=== PATIENT | female | born 1940 | race Caucasian/White ===

== ENCOUNTER 2016-08-23 20:41 | Emergency (ER) | payer OTHER ==
--- NOTE | 2016-08-23 22:38 | DIAGNOSTIC IMAGING REPORT ---
PROCEDURE: XR CHEST 1 VIEW INDICATION: CHEST PAIN TECHNIQUE: Portable AP view (2130 hours). COMPARISON: Compared to chest x-ray on 06/01/2013. FINDINGS: Allowing for suboptimal inspiration and overlying wires and electrodes, lungs are clear. Heart and mediastinum are normal. Thorax is normal. IMPRESSION: 1. Allowing for suboptimal inspiration, negative chest.
--- NOTE | 2016-08-23 23:35 | ED CLINICAL REPORT ---
Clinical Report - Physicians/Mid Levels [facility] [address] [place] [address] 08/23/2016 20:42 Patient: ROSEANN GRANT Time Seen: 21:05 Aug 23 2016. Arrived- By private vehicle. Historian- patient. CPT: ER phys charges level 4 (#[id number]). HISTORY OF PRESENT ILLNESS Chief Complaint: ABDOMINAL PAIN and VOMITING and NAUSEA. At its maximum, severity described as moderate. When seen in the E.D., severity described as moderate. Modifying factors- worsened by food. Not relieved by anything. It is described as burning and it is described as located in the epigastric area. This started today Vomited up raspberries that she just ate. Pt has not taken po well for 4 days and has not taken her usual meds including prilosec for her reflux. and is still present. The patient has had nausea and vomiting. Similar symptoms previously: Recent medical care: The patient was seen recently at another facility in the office (1 weeks ago). Seen for other problems; earpain and bronchitis. Evaluation/treatment: antibiotic prescribed. REVIEW OF SYSTEMS No constipation, black stools, hematemesis, difficulty with urination or pain with urination. No fever, sore throat, chest pain, difficulty breathing or cough. No chills. PAT right sided. Not as bad as a migraine at this point,. Amoxicillin causing diarrhea so has stopped that medication. Drinks 1.5 cups of caffeine a day. NO ETOH or NSAIDS. All systems otherwise negative, except as recorded above. PAST HISTORY Chest Wall Pain. Gastroesophageal reflux disease. SURGERY HX: Appendectomy. Sinusitis. Chest Pain. Anxiety Reaction. Headache. Hypertension. Immunizations. Gastroesophageal Reflux Disease. Migraine Headache. Asthma. Medications: ALPRAZolam Oral, as needed. Ambien Oral, as needed. ASA Oral 81mg daily. Diovan Oral (Tablet 40 mg) 1/2 tablet, daily. Maxalt Oral 5 mg, as needed. PriLOSEC Oral 20 mg, daily. Sertraline HCl Oral, daily. Allergies: Codeine. Shellfish Allergy.(hives) Sulfa Drugs. SOCIAL HISTORY Never smoker. Occasional alcohol use. No drug use. ADDITIONAL NOTES The nursing notes have been reviewed. PHYSICAL EXAM Vital Signs: 08/23/2016 20:45 BP: 188/95. HR: 78. RR: 18. O2 saturation: 97%. Temp: 97.7 F. Pain level now: 6/10. Appearance: Alert. Anxious. Patient in mild distress. Eyes: Eyes normal inspection. ENT: Pharynx normal. Neck: Normal inspection. Neck supple. CVS: Normal heart rate and rhythm. Heart sounds normal. Pulses normal. Respiratory: No respiratory distress. Breath sounds normal. Chest nontender. Abdomen: Soft. Moderate tenderness in the epigastric area with guarding present. Bowel sounds normal. No mass. Back: Normal inspection. No CVA tenderness. Skin: Skin warm. Normal skin color. No rash. Extremities: Extremities exhibit normal ROM. No calf tenderness. No lower extremity edema. Neuro: Oriented X 3. No motor deficit. No sensory deficit. Reflexes normal. LABS, X-RAYS, AND EKG EKG: Normal EKG. Chest X-ray: No acute disease. Views: AP (portable). Technique: good, poor inspiration. The X-rays were independently viewed by me and interpreted by the radiologist. Laboratory Tests: CBC w Diff: (DANELLE: 08/23/2016 20:55) ( MsgRcvd 08/23/2016 22:01) Final results Test Result Flag Units (Reference) WHITE BLOOD COUNT 12.6 H K/uL (4.5-11.5) RED BLOOD COUNT 4.45 M/uL (4.00-5.20) HEMOGLOBIN 13.9 gm/dL (12.0-16.0) HEMATOCRIT 41.1 % (36.0-46.0) MEAN CELL VOLUME 92 fL (80-100) MEAN CORPUSCULAR HGB 31 pg (26-34) MEAN CORPUSCULAR HGB CONC 34 g/dL (31-37) RED CELL DISTRIBUTION WIDTH 13.6 % (11.6-14.8) PLATELET COUNT 318 K/uL (150-400) NEUTROPHIL % 48.5 L % (50-75) LYMPH % 39.6 % (25-40) MONO % 6.6 % (3-14) EOSINOPHIL % 4.7 H % (0-4) BASOPHIL % 0.6 % (0-2) [id number]: (DANELLE: 08/23/2016 20:55) ( [facility] 08/23/2016 22:03) Final results Test Result Flag Units (Reference) D-DIMER QUANTITATIVE 0.33 ug/mLFEU (0.27-0.52) The primary value of this quantitative assay relates toits negative predictive value (i.e. exclusion) of pulmonaryembolism/deep vein thrombosis/DIC.Elevated levels of d-dimer may also occur with:, age, cancer, inflammation, liver disease,post-op, infection, hematoma, coronary disease, peripheralarteriopathy, bleeding disorders and thrombolytic treatment.Results should be correlated with other clinical andradiological data.Testing Methodology: Latex Immunoassay BNP: (DANELLE: 08/23/2016 20:55) ( [facility] 08/23/2016 22:18) Final results Test Result Flag Units (Reference) B-TYPE NATRIURETIC PEPTIDE 8.8 pg/ml (5-100) Lipase: (DANELLE: 08/23/2016 20:55) ( [facility] 08/23/2016 22:29) Final results Test Result Flag Units (Reference) LIPASE 330 U/L (73-393) AMYLASE 58 U/L (25-115) CHEM 13 PANEL: (DANELLE: 08/23/2016 20:55) ( [facility] 08/23/2016 22:16) Final results Test Result Flag Units (Reference) GLUCOSE 93 mg/dL (70-110) BUN 14 mg/dL (7-18) CREATININE 0.9 mg/dL (0.6-1.3) Estimated GFR >60 mL/min Estimated GFR- >60 mL/min Note: Persistent reduction over 3 months in eGFR<60 mL/min/1.73 m2 defines CKD. Patients with eGFR values>=60 mL/min/1.73 m2 may also have CKD if evidence ofpersistent proteinuria. Additional information may be foundat www.kidney.org. SODIUM 129 L mmol/L (136-145) POTASSIUM 3.5 mmol/L (3.5-5.1) CHLORIDE 91 L mmol/L (98-107) CARBON DIOXIDE 30 mmol/L (21-32) CALCIUM 9.3 mg/dL (8.5-10.1) TOTAL PROTEIN 7.7 g/dL (6.4-8.2) ALBUMIN 4.0 g/dL (3.3-5.0) BILIRUBIN, TOTAL 0.5 mg/dL (0.0-1.0) ALKALINE PHOSPHATASE 84 U/L (46-116) AST (SGOT) 19 U/L (15-37) ALT (SGPT) 24 U/L (12-78) MAGNESIUM 2.0 mg/dL (1.8-2.4) CPK 56 U/L (24-260) TROPONIN I <0.05 ng/mL (0.00-1.5) TROPONIN REFERENCE RANGE:<0.1 NEGATIVE0.1-1.5 INDETERMINANT>1.5 POSITIVE . PROGRESS AND PROCEDURES Course of Care: IV NS Zofran 4 mg Iv White GI cocktail: Pain resolved. Protonix 80 mg IV Carafate 20 ml po Demerol 6.25 mg IV Patient is stable. Symptoms much better. Patient/family counseled. Old medical records ordered. Disposition: Discharged. Condition: stable and improved. CLINICAL IMPRESSION Gastroesophageal reflux disease with esophagitis. Esophageal spasm. Tension headache. INSTRUCTIONS Warnings: Further evaluation is necessary. SEDATIVE MEDICATION: You were given sedative medication during your visit. Do not drive or operate dangerous machinery. GENERAL WARNINGS: Return or contact your physician immediately if your condition worsens or changes unexpectedly, if not improving as expected, or if other problems arise. Prescription Medications: Zofran (orally disintegrating tablets) 4 mg: take 1 orally every 4 hours as needed for nausea. Dispense ten (10). No refill. Carafate 1 gm tablets: take 1 orally four times daily (30 minutes before meals and at bedtime) for 10 days. Dispense forty (40). No refills. Prilosec 40 mg capsules: take 1 capsule orally every day for 10 days. Dispense ten (10). No refill. Follow-up: Follow up with your doctor in one week. Call for an appointment. Understanding of the discharge instructions verbalized by patient. (Electronically signed by Saturnino Lambert MD 09/04/2016 2:57)
--- NOTE | 2016-08-23 23:35 | ED ORDER SUMMARY ---
..... Patient: ROSEANN GRANT OrderSheet [facility] VisitID: [id number] [place] [address] 75y, F Registration Date/Time: 08/23/2016 ORDER SHEET Weight: 76.2 kg (stated) Allergies: Codeine, Shellfish Allergy, Sulfa Drugs GENERAL ORDERS: Chest 1V Urgent (21:08/23/2016 aJmarcus LARSEN) (Ack 21:28 Luther) (21:39 MCampbell) Spectacle Truer (Continuous) (21:08/23/2016 Jamarcus LARSEN) (21:25 ASchmuck) Cardiac Panel Stat (21:08/23/2016 Jamarcus LARSEN) (Ack 21:28 Luther) (21:31 Renettanandez R.N.) BNP Urgent (21:08/23/2016 Jamarcus LARSEN) (Ack 21:28 Luther) (21:31 Renettanandez R.N.) D-Dimer Urgent (21:08/23/2016 Jamarcus LARSEN) (Ack 21:28 Luther) (21:31 Renettanandez R.N.) Amylase Urgent (21:08/23/2016 Jamarcus LARSEN) (Ack 21:28 Luther) (21:31 Renettanandez R.N.) Lipase Urgent (21:08/23/2016 Jamarcus LARSEN) (Ack 21:28 Luther) (21:31 Nida R.N.) Pulse oximeter (21:08/23/2016 Jamarcus LARSEN) (21:25 ASchmuck) EKG - ER Stat (21:08/23/2016 Jamarcus LARSEN) (21:25 ASchmuck) MEDICATION ORDERS: GI Cocktail WHITE PO 50 mL (NOW) (21:24 08/23/2016 Jamarcus LARSEN) (Ack 21:32 Nida R.N.) (21:52 Renettanandez R.N.) Carafate PO 20 ml (NOW) (21:08/23/2016 Jamarcus LARSEN) (Ack 21:32 Nida R.N.) (21:58 Nida R.N.) IV FLUIDS: IV NS : initial bolus 500 mL (1000 mL/hr), then 150 mL/hr for 4h (NOW); Routine (21:23 08/23/2016 Jamarcus LARSEN) (Ack 21:32 Nida R.N.) (21:50 Nida R.N.) Zofran IV 4 mg (NOW) (21:24 08/23/2016 Jamarcus LARSEN) (Ack 21:32 Nida R.N.) (21:51 Nida R.N.) Protonix IVP 80mg 80 mg (Mix in NS 20ml over 4min) (21:24 08/23/2016 Jamarcus LARSEN) (Ack 21:32 Nida R.N.) (21:52 Nida David.N.) Demerol IV 6.25 mg IV (NOW) (23:30 08/23/2016 Jamarcus LARSEN) (0:01 Nida R.N.) ORDER SHEET NOTES: [Electronically signed by Destin La R.N. (00:01 08/24/2016)] [Electronically signed by Saturnino Lambert MD (02:57 09/04/2016)] [Electronically locked/signed by Destin La R.N. (00:01 08/24/2016)]
--- NOTE | 2016-08-23 23:35 | ED NURSING NOTES ---
Clinical Report - Nurses [facility] [place] [address] 08/23/2016 20:42 Patient: ROSEANN GRANT TRIAGE Triage time 20:45. Acuity: LEVEL 3. Chief Complaint: ABDOMINAL PAIN, NAUSEA and VOMITING. --20:53 Destin La R.N. 20:45 08/23/16. BP: 188/95. HR: 78. RR: 18. O2 saturation: 97%. Temp: 97.7 F (oral). Pain level now: 07/31. --20:53 Destin La R.N. Weight: 76.2 kg stated. Height/Length: 63 inches Per Patient. BMI: 29.8. --20:51 Destin La R.N. Medications ALPRAZolam Oral, as needed. Ambien Oral, as needed. ASA Oral 81mg daily. Diovan Oral (Tablet 40 mg) 1/2 tablet, daily. Maxalt Oral 5 mg, as needed. PriLOSEC Oral 20 mg, daily. Sertraline HCl Oral, daily. --20:49 Destin La R.N. Medication/allergy information source: the patient. --20:53 Destin La R.N. Allergies Codeine. Shellfish Allergy.(hives) Sulfa Drugs. --20:49 Destin La R.N. History Arrived by private vehicle. Historian: patient. Accompanied by family. ( Nausea and vomiting tonight, feels like her acid reflux. Burning pain on the epigastric area. Also has diarrhea and currently on antibiotics for bronchitis.). This started just prior to arrival. She has had nausea, vomiting and abdominal pain. The pain is described as located in the epigastrium and associated with nausea and vomiting. Last oral intake by patient was dinner. Treatment SENIOR WEB SERVICES DEVELOPER: None. PAST MEDICAL HX: Gastroesophageal reflux disease. SURGERY HX: Appendectomy. SOCIAL HX: No infectious disease exposure. --20:53 Destin La R.N. PROBLEMS: Chest Wall Pain. Sinusitis. Chest Pain. Anxiety Reaction. Headache. Hypertension. Immunizations. Gastroesophageal Reflux Disease. Migraine Headache. Asthma. --20:50 Destin La R.N. Interventions ID band on patient. To room. --20:53 Destin La R.N. PHYSICAL ASSESSMENT To room via wheelchair. GENERAL / NEURO / PSYCH: Alert. Oriented X 4. Appears in no acute distress. HEENT: Mucous membranes are pink. RESPIRATORY: Respirations not labored. Breath sounds within normal limits. CVS: Capillary refill less than 2 seconds. GI / : The patient has had nausea and loose stools. Emesis noted. Has vomited several times. Abdomen soft. SKIN: Skin is warm and dry. --20:55 Destin La R.N. NURSING PROGRESS NOTES 20:52 08/23/2016 Site #1 started via IV in the left forearm with an 20g angiocath; one attempt. Blood drawn: rainbow set. Saline lock flushed with 10 mL saline. --20:57 Destin La R.N. busgirl, pulse oximeter, end tidal CO2 monitor and NIBP monitor placed on patient; cardiac nurse specialist- Lead II; monitor alarms on. Patient ID band checked for patient name and birthdate: patient confirmed. Blood samples drawn from the left forearm IV site (prior to IV fluid start) by nurse ; labeled in presence of the patient and sent to lab: rainbow set. Patient gowned. Head of bed elevated. Patient identifiers checked. Call light placed in reach. Bed placed in lowest position. Brakes of bed on. Patient ready for evaluation- ED physician notified. --20:57 Destin La R.N. Cardiac rhythm: normal sinus rhythm. --20:57 Destin La R.N. EKG time: (20:53 Aug 23 2016). EKG was ordered, performed by a nurse and shown to the ED physician. --21:11 Ksenia Parr 21:45 08/23/2016 Started bag #1 1000 mL IV Fluids IV NS (Saline); bolus of 500 mL over 30 minute(s) via site #1 via IV pump. Allergies verified and confirmed 5 rights. IV patency established. IV site checked: no pain, redness, or swelling. IV flushed thoroughly pre- and post-medication administration. --21:50 Destin La R.N. 21:45 08/23/2016 Zofran (Ondansetron HCl) IVP 4 mg given over 2 minute(s) via site #1. Allergies verified and confirmed 5 rights. IV patency established. IV site checked: no pain, redness, or swelling. IV flushed thoroughly pre- and post-medication administration. IVP given by RN. --21:51 Destin La R.N. 21:46 08/23/2016 GI COCKTAIL WHITE (Simethicone) PO Oral Suspension 50 mL given. Allergies verified and confirmed 5 rights. --21:52 Destin La R.N. 21:52 08/23/2016 PROTONIX (Pantoprazole Sodium) IVP 80 mg given over 5 minute(s) via site #1. Allergies verified and confirmed 5 rights. IV patency established. IV site checked: no pain, redness, or swelling. IV flushed thoroughly pre- and post-medication administration. IVP given by RN. --21:52 Destin La R.N. 21:00 08/23/16. BP: 157/83. HR: 70. RR: 16. O2 saturation: 99%. --21:56 Destin La R.N. 21:00. Cardiac rhythm: normal sinus rhythm. GI / : Abdomen soft. SKIN: Skin is warm and dry. Skin color within normal limits. --21:56 Destin La R.N. Cardiac rhythm: normal sinus rhythm. Reassessment after medication administered. Overall patient status- she states feels better. --21:57 Destin La R.N. 21:56 08/23/16. BP: 157/79. HR: 65. RR: 16. O2 saturation: 99%. Pain level now: 05/31. --21:57 Destin La R.N. 21:58 08/23/2016 Carafate (Sucralfate) PO Oral Suspension 2 gm given. Allergies verified and confirmed 5 rights. --21:58 Destin La R.N. 22:27 08/23/2016 Started bag #1 500 mL IV Fluids IV NS (Saline); at 150 mL/hr over 4 hour(s) via site #1 via IV pump. Allergies verified and confirmed 5 rights. IV patency established. IV site checked: no pain, redness, or swelling. IV flushed thoroughly pre- and post-medication administration. --22:28 Destin La R.N. 22:27 08/23/2016 IV Fluids IV NS Discontinued: bag #1 infused. Total amount infused: 500 mL. IV patency established. IV site checked: no pain, redness, or swelling. IV flushed thoroughly. --22:27 Destin La R.N. 23:08/23/16. BP: 148/73. HR: 73. RR: 18. O2 saturation: 100%. Temp: 98.1 F. Pain level now: 04/02. --23:02 Destin La R.N. Cardiac rhythm: normal sinus rhythm. Reassessment after fluids administered and medication administered. She is resting quietly. Overall patient status is improved- she states feels better. GI / : Abdomen soft. SKIN: Skin is warm and dry. Skin color within normal limits. --23:02 Destin La R.N. 23:49 08/23/2016 IV Fluids IV NS Discontinued: bag #1 completed upon discharge. Total amount infused: 300 mL. IV patency established. IV site checked: no pain, redness, or swelling. IV flushed thoroughly. --23:59 Destin La R.N. 23:51 08/23/2016 Demerol (Meperidine HCl) IVP 6.25 mg given over 3 minute(s) via site #1. Allergies verified and confirmed 5 rights. IV patency established. IV site checked: no pain, redness, or swelling. IV flushed thoroughly pre- and post-medication administration. IVP given by RN. --00:01 Destin La R.N. 00:01 08/24/2016 Site #1 removed. Pressure dressing applied. --00:01 Destin La R.N. DISPOSITION / DISCHARGE Cardiac rhythm: normal sinus rhythm. Condition at departure: improved. No learning barriers present. Discharge instructions provided and reviewed with the patient and spouse. Reviewed medication(s) side effects, precautions, dosing and course information. Prescription(s) given to the patient. Reviewed referral to a primary care physician for followup. Patient verbalized understanding. Written instructions provided in Micronesian. The patient was discharged home and accompanied by spouse. She left the Emergency Department ambulatory and via ambulance. Spouse driving. --23:59 Destin La R.N. 23:58 08/23/16. BP: 140/69. HR: 68. RR: 16. O2 saturation: 100%. Temp: 98.1 F. Pain level now: 010. --23:59 Destin La R.N. Departure time: 00:01. --00:01 Destin La R.N. Locked/Released at 08/24/2016 0:01 by Destin La R.N.
--- NOTE | 2016-08-23 23:35 | ED ORDER SUMMARY ---
..... Patient: ROSEANN GRANT OrderSheet VisitID: [id number] [place] [address] 75y, F Registration Date/Time: 08/23/2016 ORDER SHEET Weight: 76.2 kg (stated) Allergies: Codeine, Shellfish Allergy, Sulfa Drugs GENERAL ORDERS: Chest 1V Urgent (21:08/23/2016 Jamarcus LARSEN) (Ack 21:28 Luther) (21:39 MCampbell) Real Estate Broker (Continuous) (21:08/23/2016 Jamarcus LARSEN) (21:25 ASchmuck) Cardiac Panel Stat (21:08/23/2016 Jamarcus LARSEN) (Ack 21:28 Luther) (21:31 Renettanandez R.N.) BNP Urgent (21:08/23/2016 Jamarcus LARSEN) (Ack 21:28 Luther) (21:31 Renettanandez R.N.) D-Dimer Urgent (21:08/23/2016 Jamarcus LARSEN) (Ack 21:28 Luther) (21:31 Renettanandez R.N.) Amylase Urgent (21:08/23/2016 Jamarcus LARSEN) (Ack 21:28 Luther) (21:31 Renettanandez R.N.) Lipase Urgent (21:08/23/2016 Jamarcus LARSEN) (Ack 21:28 Luther) (21:31 Nida R.N.) Pulse oximeter (21:08/23/2016 Jamarcus LARSEN) (21:25 ASchmuck) EKG - ER Stat (21:08/23/2016 Jamarcus LARSEN) (21:25 ASchmuck) MEDICATION ORDERS: GI Cocktail WHITE PO 50 mL (NOW) (21:24 08/23/2016 Jamarcus LARSEN) (Ack 21:32 Nida R.N.) (21:52 Renettanandez R.N.) Carafate PO 20 ml (NOW) (21:08/23/2016 Jamarcus LARSEN) (Ack 21:32 Nida R.N.) (21:58 Nida R.N.) IV FLUIDS: IV NS : initial bolus 500 mL (1000 mL/hr), then 150 mL/hr for 4h (NOW); Routine (21:23 08/23/2016 Jamarcus LARSEN) (Ack 21:32 Nida R.N.) (21:50 Nida R.N.) Zofran IV 4 mg (NOW) (21:24 08/23/2016 Jamarcus LARSEN) (Ack 21:32 Nida R.N.) (21:51 Nida R.N.) Protonix IVP 80mg 80 mg (Mix in NS 20ml over 4min) (21:24 08/23/2016 Jamarcus LARSEN) (Ack 21:32 Nida R.N.) (21:52 iNda David.N.) Demerol IV 6.25 mg IV (NOW) (23:30 08/23/2016 Jamarcus LARSEN) (0:01 Nida R.N.) ORDER SHEET NOTES: [Electronically signed by Destin La R.N. (00:01 08/24/2016)] [Electronically signed by Saturnino Lambert MD (02:57 09/04/2016)] [Electronically locked/signed by Destin La R.N. (00:01 08/24/2016)]
--- NOTE | 2016-08-23 23:35 | ED NURSING NOTES ---
Clinical Report - Nurses [facility] [place] [address] 08/23/2016 20:42 Patient: ROSEANN GRANT TRIAGE Triage time 20:45. Acuity: LEVEL 3. Chief Complaint: ABDOMINAL PAIN, NAUSEA and VOMITING. --20:53 Destin La R.N. 20:45 08/23/16. BP: 188/95. HR: 78. RR: 18. O2 saturation: 97%. Temp: 97.7 F (oral). Pain level now: 07/31. --20:53 Destin La R.N. Weight: 76.2 kg stated. Height/Length: 63 inches Per Patient. BMI: 29.8. --20:51 Destin La R.N. Medications ALPRAZolam Oral, as needed. Ambien Oral, as needed. ASA Oral 81mg daily. Diovan Oral (Tablet 40 mg) 1/2 tablet, daily. Maxalt Oral 5 mg, as needed. PriLOSEC Oral 20 mg, daily. Sertraline HCl Oral, daily. --20:49 Destin La R.N. Medication/allergy information source: the patient. --20:53 Destin La R.N. Allergies Codeine. Shellfish Allergy.(hives) Sulfa Drugs. --20:49 Destin La R.N. History Arrived by private vehicle. Historian: patient. Accompanied by family. ( Nausea and vomiting tonight, feels like her acid reflux. Burning pain on the epigastric area. Also has diarrhea and currently on antibiotics for bronchitis.). This started just prior to arrival. She has had nausea, vomiting and abdominal pain. The pain is described as located in the epigastrium and associated with nausea and vomiting. Last oral intake by patient was dinner. Treatment DIRECTOR OF REHABILITATION: None. PAST MEDICAL HX: Gastroesophageal reflux disease. SURGERY HX: Appendectomy. SOCIAL HX: No infectious disease exposure. --20:53 Destin La R.N. PROBLEMS: Chest Wall Pain. Sinusitis. Chest Pain. Anxiety Reaction. Headache. Hypertension. Immunizations. Gastroesophageal Reflux Disease. Migraine Headache. Asthma. --20:50 Destin La R.N. Interventions ID band on patient. To room. --20:53 Destin La R.N. PHYSICAL ASSESSMENT To room via wheelchair. GENERAL / NEURO / PSYCH: Alert. Oriented X 4. Appears in no acute distress. HEENT: Mucous membranes are pink. RESPIRATORY: Respirations not labored. Breath sounds within normal limits. CVS: Capillary refill less than 2 seconds. GI / : The patient has had nausea and loose stools. Emesis noted. Has vomited several times. Abdomen soft. SKIN: Skin is warm and dry. --20:55 Destin La R.N. NURSING PROGRESS NOTES 20:52 08/23/2016 Site #1 started via IV in the left forearm with an 20g angiocath; one attempt. Blood drawn: rainbow set. Saline lock flushed with 10 mL saline. --20:57 Destin La R.N. environmental monitoring specialist, pulse oximeter, end tidal CO2 monitor and NIBP monitor placed on patient; security monitor- Lead II; monitor alarms on. Patient ID band checked for patient name and birthdate: patient confirmed. Blood samples drawn from the left forearm IV site (prior to IV fluid start) by nurse ; labeled in presence of the patient and sent to lab: rainbow set. Patient gowned. Head of bed elevated. Patient identifiers checked. Call light placed in reach. Bed placed in lowest position. Brakes of bed on. Patient ready for evaluation- ED physician notified. --20:57 Destin La R.N. Cardiac rhythm: normal sinus rhythm. --20:57 Destin La R.N. EKG time: (20:53 Aug 23 2016). EKG was ordered, performed by a nurse and shown to the ED physician. --21:11 Ksenia Parr 21:45 08/23/2016 Started bag #1 1000 mL IV Fluids IV NS (Saline); bolus of 500 mL over 30 minute(s) via site #1 via IV pump. Allergies verified and confirmed 5 rights. IV patency established. IV site checked: no pain, redness, or swelling. IV flushed thoroughly pre- and post-medication administration. --21:50 Destin La R.N. 21:45 08/23/2016 Zofran (Ondansetron HCl) IVP 4 mg given over 2 minute(s) via site #1. Allergies verified and confirmed 5 rights. IV patency established. IV site checked: no pain, redness, or swelling. IV flushed thoroughly pre- and post-medication administration. IVP given by RN. --21:51 Destin La R.N. 21:46 08/23/2016 GI COCKTAIL WHITE (Simethicone) PO Oral Suspension 50 mL given. Allergies verified and confirmed 5 rights. --21:52 Destin La R.N. 21:52 08/23/2016 PROTONIX (Pantoprazole Sodium) IVP 80 mg given over 5 minute(s) via site #1. Allergies verified and confirmed 5 rights. IV patency established. IV site checked: no pain, redness, or swelling. IV flushed thoroughly pre- and post-medication administration. IVP given by RN. --21:52 Destin La R.N. 21:00 08/23/16. BP: 157/83. HR: 70. RR: 16. O2 saturation: 99%. --21:56 Destin La R.N. 21:00. Cardiac rhythm: normal sinus rhythm. GI / : Abdomen soft. SKIN: Skin is warm and dry. Skin color within normal limits. --21:56 Destin La R.N. Cardiac rhythm: normal sinus rhythm. Reassessment after medication administered. Overall patient status- she states feels better. --21:57 Destin La R.N. 21:56 08/23/16. BP: 157/79. HR: 65. RR: 16. O2 saturation: 99%. Pain level now: 05/31. --21:57 Destin La R.N. 21:58 08/23/2016 Carafate (Sucralfate) PO Oral Suspension 2 gm given. Allergies verified and confirmed 5 rights. --21:58 Destin La R.N. 22:27 08/23/2016 Started bag #1 500 mL IV Fluids IV NS (Saline); at 150 mL/hr over 4 hour(s) via site #1 via IV pump. Allergies verified and confirmed 5 rights. IV patency established. IV site checked: no pain, redness, or swelling. IV flushed thoroughly pre- and post-medication administration. --22:28 Destin La R.N. 22:27 08/23/2016 IV Fluids IV NS Discontinued: bag #1 infused. Total amount infused: 500 mL. IV patency established. IV site checked: no pain, redness, or swelling. IV flushed thoroughly. --22:27 Destin La R.N. 23:08/23/16. BP: 148/73. HR: 73. RR: 18. O2 saturation: 100%. Temp: 98.1 F. Pain level now: 04/02. --23:02 Destin La R.N. Cardiac rhythm: normal sinus rhythm. Reassessment after fluids administered and medication administered. She is resting quietly. Overall patient status is improved- she states feels better. GI / : Abdomen soft. SKIN: Skin is warm and dry. Skin color within normal limits. --23:02 Destin La R.N. 23:49 08/23/2016 IV Fluids IV NS Discontinued: bag #1 completed upon discharge. Total amount infused: 300 mL. IV patency established. IV site checked: no pain, redness, or swelling. IV flushed thoroughly. --23:59 Destin La R.N. 23:51 08/23/2016 Demerol (Meperidine HCl) IVP 6.25 mg given over 3 minute(s) via site #1. Allergies verified and confirmed 5 rights. IV patency established. IV site checked: no pain, redness, or swelling. IV flushed thoroughly pre- and post-medication administration. IVP given by RN. --00:01 Destin La R.N. 00:01 08/24/2016 Site #1 removed. Pressure dressing applied. --00:01 Destin La R.N. DISPOSITION / DISCHARGE Cardiac rhythm: normal sinus rhythm. Condition at departure: improved. No learning barriers present. Discharge instructions provided and reviewed with the patient and spouse. Reviewed medication(s) side effects, precautions, dosing and course information. Prescription(s) given to the patient. Reviewed referral to a primary care physician for followup. Patient verbalized understanding. Written instructions provided in [facility]. The patient was discharged home and accompanied by spouse. She left the Emergency Department ambulatory and via ambulance. Spouse driving. --23:59 Destin La R.N. 23:58 08/23/16. BP: 140/69. HR: 68. RR: 16. O2 saturation: 100%. Temp: 98.1 F. Pain level now: 010. --23:59 Destin La R.N. Departure time: 00:01. --00:01 Destin La R.N. Locked/Released at 08/24/2016 0:01 by Destin La R.N.
--- NOTE | 2016-08-23 23:35 | ED CLINICAL REPORT ---
Clinical Report - Physicians/Mid Levels [facility] [address] [place] [address] 08/23/2016 20:42 Patient: ROSEANN GRANT Time Seen: 21:05 Aug 23 2016. Arrived- By private vehicle. Historian- patient. CPT: ER phys charges level 4 (#[id number]). HISTORY OF PRESENT ILLNESS Chief Complaint: ABDOMINAL PAIN and VOMITING and NAUSEA. At its maximum, severity described as moderate. When seen in the E.D., severity described as moderate. Modifying factors- worsened by food. Not relieved by anything. It is described as burning and it is described as located in the epigastric area. This started today Vomited up raspberries that she just ate. Pt has not taken po well for 4 days and has not taken her usual meds including prilosec for her reflux. and is still present. The patient has had nausea and vomiting. Similar symptoms previously: Recent medical care: The patient was seen recently at another facility in the office (1 weeks ago). Seen for other problems; earpain and bronchitis. Evaluation/treatment: antibiotic prescribed. REVIEW OF SYSTEMS No constipation, black stools, hematemesis, difficulty with urination or pain with urination. No fever, sore throat, chest pain, difficulty breathing or cough. No chills. PAT right sided. Not as bad as a migraine at this point,. Amoxicillin causing diarrhea so has stopped that medication. Drinks 1.5 cups of caffeine a day. NO ETOH or NSAIDS. All systems otherwise negative, except as recorded above. PAST HISTORY Chest Wall Pain. Gastroesophageal reflux disease. SURGERY HX: Appendectomy. Sinusitis. Chest Pain. Anxiety Reaction. Headache. Hypertension. Immunizations. Gastroesophageal Reflux Disease. Migraine Headache. Asthma. Medications: ALPRAZolam Oral, as needed. Ambien Oral, as needed. ASA Oral 81mg daily. Diovan Oral (Tablet 40 mg) 1/2 tablet, daily. Maxalt Oral 5 mg, as needed. PriLOSEC Oral 20 mg, daily. Sertraline HCl Oral, daily. Allergies: Codeine. Shellfish Allergy.(hives) Sulfa Drugs. SOCIAL HISTORY Never smoker. Occasional alcohol use. No drug use. ADDITIONAL NOTES The nursing notes have been reviewed. PHYSICAL EXAM Vital Signs: 08/23/2016 20:45 BP: 188/95. HR: 78. RR: 18. O2 saturation: 97%. Temp: 97.7 F. Pain level now: 6/10. Appearance: Alert. Anxious. Patient in mild distress. Eyes: Eyes normal inspection. ENT: Pharynx normal. Neck: Normal inspection. Neck supple. CVS: Normal heart rate and rhythm. Heart sounds normal. Pulses normal. Respiratory: No respiratory distress. Breath sounds normal. Chest nontender. Abdomen: Soft. Moderate tenderness in the epigastric area with guarding present. Bowel sounds normal. No mass. Back: Normal inspection. No CVA tenderness. Skin: Skin warm. Normal skin color. No rash. Extremities: Extremities exhibit normal ROM. No calf tenderness. No lower extremity edema. Neuro: Oriented X 3. No motor deficit. No sensory deficit. Reflexes normal. LABS, X-RAYS, AND EKG EKG: Normal EKG. Chest X-ray: No acute disease. Views: AP (portable). Technique: good, poor inspiration. The X-rays were independently viewed by me and interpreted by the radiologist. Laboratory Tests: CBC w Diff: (DANELLE: 08/23/2016 20:55) ( [id number] 08/23/2016 22:01) Final results Test Result Flag Units (Reference) WHITE BLOOD COUNT 12.6 H K/uL (4.5-11.5) RED BLOOD COUNT 4.45 M/uL (4.00-5.20) HEMOGLOBIN 13.9 gm/dL (12.0-16.0) HEMATOCRIT 41.1 % (36.0-46.0) MEAN CELL VOLUME 92 fL (80-100) MEAN CORPUSCULAR HGB 31 pg (26-34) MEAN CORPUSCULAR HGB CONC 34 g/dL (31-37) RED CELL DISTRIBUTION WIDTH 13.6 % (11.6-14.8) PLATELET COUNT 318 K/uL (150-400) NEUTROPHIL % 48.5 L % (50-75) LYMPH % 39.6 % (25-40) MONO % 6.6 % (3-14) EOSINOPHIL % 4.7 H % (0-4) BASOPHIL % 0.6 % (0-2) [id number]: (DANELLE: 08/23/2016 20:55) ( [facility] 08/23/2016 22:03) Final results Test Result Flag Units (Reference) D-DIMER QUANTITATIVE 0.33 ug/mLFEU (0.27-0.52) The primary value of this quantitative assay relates toits negative predictive value (i.e. exclusion) of pulmonaryembolism/deep vein thrombosis/DIC.Elevated levels of d-dimer may also occur with:, age, cancer, inflammation, liver disease,post-op, infection, hematoma, coronary disease, peripheralarteriopathy, bleeding disorders and thrombolytic treatment.Results should be correlated with other clinical andradiological data.Testing Methodology: Latex Immunoassay BNP: (DANELLE: 08/23/2016 20:55) ( [facility] 08/23/2016 22:18) Final results Test Result Flag Units (Reference) B-TYPE NATRIURETIC PEPTIDE 8.8 pg/ml (5-100) Lipase: (DANELLE: 08/23/2016 20:55) ( [facility] 08/23/2016 22:29) Final results Test Result Flag Units (Reference) LIPASE 330 U/L (73-393) AMYLASE 58 U/L (25-115) CHEM 13 PANEL: (DANELLE: 08/23/2016 20:55) ( [facility] 08/23/2016 22:16) Final results Test Result Flag Units (Reference) GLUCOSE 93 mg/dL (70-110) BUN 14 mg/dL (7-18) CREATININE 0.9 mg/dL (0.6-1.3) Estimated GFR >60 mL/min Estimated GFR- >60 mL/min Note: Persistent reduction over 3 months in eGFR<60 mL/min/1.73 m2 defines CKD. Patients with eGFR values>=60 mL/min/1.73 m2 may also have CKD if evidence ofpersistent proteinuria. Additional information may be foundat www.kidney.org. SODIUM 129 L mmol/L (136-145) POTASSIUM 3.5 mmol/L (3.5-5.1) CHLORIDE 91 L mmol/L (98-107) CARBON DIOXIDE 30 mmol/L (21-32) CALCIUM 9.3 mg/dL (8.5-10.1) TOTAL PROTEIN 7.7 g/dL (6.4-8.2) ALBUMIN 4.0 g/dL (3.3-5.0) BILIRUBIN, TOTAL 0.5 mg/dL (0.0-1.0) ALKALINE PHOSPHATASE 84 U/L (46-116) AST (SGOT) 19 U/L (15-37) ALT (SGPT) 24 U/L (12-78) MAGNESIUM 2.0 mg/dL (1.8-2.4) CPK 56 U/L (24-260) TROPONIN I <0.05 ng/mL (0.00-1.5) TROPONIN REFERENCE RANGE:<0.1 NEGATIVE0.1-1.5 INDETERMINANT>1.5 POSITIVE . PROGRESS AND PROCEDURES Course of Care: IV NS Zofran 4 mg Iv White GI cocktail: Pain resolved. Protonix 80 mg IV Carafate 20 ml po Demerol 6.25 mg IV Patient is stable. Symptoms much better. Patient/family counseled. Old medical records ordered. Disposition: Discharged. Condition: stable and improved. CLINICAL IMPRESSION Gastroesophageal reflux disease with esophagitis. Esophageal spasm. Tension headache. INSTRUCTIONS Warnings: Further evaluation is necessary. SEDATIVE MEDICATION: You were given sedative medication during your visit. Do not drive or operate dangerous machinery. GENERAL WARNINGS: Return or contact your physician immediately if your condition worsens or changes unexpectedly, if not improving as expected, or if other problems arise. Prescription Medications: Zofran (orally disintegrating tablets) 4 mg: take 1 orally every 4 hours as needed for nausea. Dispense ten (10). No refill. Carafate 1 gm tablets: take 1 orally four times daily (30 minutes before meals and at bedtime) for 10 days. Dispense forty (40). No refills. Prilosec 40 mg capsules: take 1 capsule orally every day for 10 days. Dispense ten (10). No refill. Follow-up: Follow up with your doctor in one week. Call for an appointment. Understanding of the discharge instructions verbalized by patient. (Electronically signed by Saturnino Lambert MD 09/04/2016 2:57)
--- NOTE | 2016-09-04 02:58 | ED DISCHARGE INSTRUCTIONS ---
Patient: ROSEANN GRANT General Instructions [facility] VisitID: [id number] [place] [address] 75y, F Registration Date/Time: 08/23/2016 Gastroesophageal reflux disease with esophagitis. Esophageal spasm. Tension headache. INSTRUCTIONS Warnings: Further evaluation is necessary. SEDATIVE MEDICATION: You were given sedative medication during your visit. Do not drive or operate dangerous machinery. GENERAL WARNINGS: Return or contact your physician immediately if your condition worsens or changes unexpectedly, if not improving as expected, or if other problems arise. Prescription Medications: Zofran (orally disintegrating tablets) 4 mg: take 1 orally every 4 hours as needed for nausea. Dispense ten (10). No refill. Carafate 1 gm tablets: take 1 orally four times daily (30 minutes before meals and at bedtime) for 10 days. Dispense forty (40). No refills. Prilosec 40 mg capsules: take 1 capsule orally every day for 10 days. Dispense ten (10). No refill. Follow-up: Follow up with your doctor in one week. Call for an appointment. Understanding of the discharge instructions verbalized by patient. ADDITIONAL INFORMATION GERD (Adult) The esophagus is a tube that carries food from the mouth to the stomach. A valve at the lower end of the esophagus prevents stomach acid from flowing upward. If this valve does not work properly, acid from the stomach enters the esophagus. If this occurs over and over, the acid will injure the lining of the esophagus. This condition is called GERD (gastroesophageal reflux disease) or acid reflux. When stomach acid flows upward into the esophagus, it causes burning, pressure or sharp pain in the upper abdomen or mid to lower chest. The pain can spread to the neck, back, or shoulder, similar to heart pain (angina). There may be belching, an acid taste in the back of the throat, chronic cough, or sore throat or hoarseness. GERD symptoms often occur during the day after a big meal, but it can also occur at night when lying down. Smoking,as well as drinking alcohol, increases the risk of GERD. GERD is a chronic condition. Once it begins, it is often lifelong. Treatment includes changes in eating habits and the use of acid sinai medications to decrease the amount of acid in the stomach. Symptoms often improve with treatment, but if treatment is stopped, the symptoms usually return after a few months. So most persons with GERD will need to continue treatment. Home Care: Take the prescribed acid sinai medication for the full course of treatment even if you begin to feel better sooner. This medication can take up to several days to fully control your symptoms. If you cant afford the prescribed medication, you can try [id number] acid blockers, such as Pepcid AC, Tagamet, Zantac, or Aciphex. If these do not relieve your symptoms, a stronger acid-sinai can be tried, such as Prilosec OTC. You can use antacids, such as Tums, Rolaids, Mylanta, or Maalox, for pain. This will be useful the first few days after starting acid blockers when the blockers havent started working yet. Follow the directions on the label. Liquid antacids may work better than tablets. Note that antacids can interfere with absorption of certain medications. Specifically, do not take Tagamet (cimetidine), Zantac (ranitidine), or Carafate (sucralfate) within 1 hour of taking an antacid. Talk with your pharmacist if you have any questions. Limit or avoid fatty, fried, and spicy foods, as well as coffee, chocolate, mint, and foods with high acid content such as tomatoes and citrus fruit and juices (orange, grapefruit, lemon). Avoid alcohol and smoking. Dont eat large meals, especially at night. Frequent, smaller meals are best. Do not lie down right after eating. And dont eat anything 3 hours before going to bed. If you are overweight, losing weight will reduce symptoms. Women should not wear corsets or girdles because this increases pressure on the stomach and worsens reflux. If your symptoms occur during sleep, use a foam wedge to elevate your upper body (not just your head.) Or, place 4" blocks under the head of your bed. Follow Up with your doctor or as advised by our staff. Further testing may be needed. If you do not begin to improve over the next 4 days, contact your doctor. If you had an x-ray, CT scan, or ECG (electrocardiogram), it will be reviewed by a specialist. Youll be notified of any new findings that affect your care. Get Prompt Medical Attention if any of the following occur: Stomach pain gets worse or moves to the lower right abdomen (appendix area) Chest pain appears or gets worse, or spreads to the back, neck, shoulder, or arm Frequent vomiting (cant keep down liquids) Blood in the stool or vomit (red or black in color) Feeling weak or dizzy, fainting, or trouble breathing Fever of 100.4F (38C) or higher, or as directed by your healthcare provider Esophageal Spasm The esophagus is a muscular tube that joins your mouth to your stomach. Normal waves of contraction help food move down the esophagus to reach the stomach. Esophageal spasms are abnormal contractions of these muscles. When the muscles are in spasm it may feel like the food is stuck and wont go down. It may cause a feeling of heartburn or a squeezing type of chest pain that can feel just like heart pain (angina). The pain may spread to the neck, arm or back. If you try to swallow more food or liquid during a spasm, it may come back up within seconds. The cause of esophageal spasm is not known but it is more common in people with acid reflux disease (also called "GERD" or "Esophagitis"). Very hot or very cold foods or foods that are not chewed enough before swallowing may trigger an episode. Special tests may be ordered to confirm the diagnosis if there is doubt. Medicine is used to prevent or treat symptoms in most cases. Severe symptoms can be treated with surgery. Home Care: If you are prone to acid reflux and heartburn symptoms, your doctor may prescribe acid-blocking medicine. If not, you can use over the counter medicines as a preventive if you get symptoms often. The following medicines are available without a prescription: Antacids: Neutralize stomach acid. (such as Gaviscon, Mylanta, Tums or Rolaids) Acid-Blockers: Reduce the production of acid in the stomach. (Axid, Pepcid-AC, Tagamet-HB, Zantac, Prilosec-OTC). Learn to recognize if certain foods are causing your spasm and avoid these. Avoid very hot and very cold foods if this is a trigger for you. Eat slowly and chew food well before swallowing. Follow Up with your doctor or as advised by our staff. Get Prompt Medical Attention if any of the following occur: Chest pain or pain in the neck, back, shoulder or arm that does not respond to the treatment recommended Food that feels "stuck" in the esophagus for more than 30 minutes Inability to swallow solid or liquids for more than 30 minutes Symptoms that feel like esophageal spasm but occur with heavy sweating, dizziness, fainting or shortness of breath Change in the usual patterns of your symptoms of esophageal spasm (new pattern of spreading to the neck, back, shoulder or arm; pain that is more severe than usual) Ondansetron Oral disintegrating tablet What is this medicine? ONDANSETRON (on JACEK se anselmo) is used to treat nausea and vomiting caused by chemotherapy. It is also used to prevent or treat nausea and vomiting after surgery. How should I use this medicine? These tablets are made to dissolve in the mouth. Do not try to push the tablet through the foil backing. With dry hands, peel away the foil backing and gently remove the tablet. Place the tablet in the mouth and allow it to dissolve, then swallow. While you may take these tablets with water, it is not necessary to do so. Talk to your side guider regarding the use of this medicine in children. Special care may be needed. What side effects may I notice from receiving this medicine? Side effects that you should report to your doctor or health personal care home administrator as soon as possible: allergic reactions like skin rash, itching or hives, swelling of the face, lips, or tongue breathing problems dizziness fast or irregular heartbeat feeling faint or lightheaded, falls fever and chills swelling of the hands and feet tightness in the chest Side effects that usually do not require medical attention (report to your doctor or health personal care home administrator if they continue or are bothersome): constipation or diarrhea headache What may interact with this medicine? Do not take this medicine with any of the following medications: -apomorphine -cisapride -dofetilide -dronedarone -pimozide -thioridazine -ziprasidone This medicine may also interact with the following medications: -carbamazepine -phenytoin -rifampicin -tramadol -other medicines that prolong the QT interval (cause an abnormal heart rhythm) What if I miss a dose? If you miss a dose, take it as soon as you can. If it is almost time for your next dose, take only that dose. Do not take double or extra doses. Where should I keep my medicine? Keep out of the reach of children. Store between 2 and 30 degrees C (36 and 86 degrees F). Throw away any unused medicine after the expiration date. What should I tell my health care provider before I take this medicine? They need to know if you have any of these conditions: heart disease history of irregular heartbeat liver disease low levels of magnesium or potassium in the blood an unusual or allergic reaction to ondansetron, granisetron, other medicines, foods, dyes, or preservatives or trying to get breast-feeding What should I watch for while using this medicine? Check with your doctor or health personal care home administrator as soon as you can if you have any sign of an allergic reaction. Sucralfate Oral tablet What is this medicine? SUCRALFATE (EMMA riaz fate) helps to treat ulcers of the intestine. How should I use this medicine? Take this medicine by mouth with a glass of water. Follow the directions on the prescription label. This medicine works best if you take it on an empty stomach, 1 hour before meals. Take your doses at regular intervals. Do not take your medicine more often than directed. Do not stop taking except on your doctor's advice. Talk to your side guider regarding the use of this medicine in children. Special care may be needed. What side effects may I notice from receiving this medicine? Side effects that you should report to your doctor or health personal care home administrator as soon as possible: allergic reactions like skin rash, itching or hives, swelling of the face, lips, or tongue difficulty breathing Side effects that usually do not require medical attention (report to your doctor or health personal care home administrator if they continue or are bothersome): back pain constipation drowsy, dizzy dry mouth headache stomach upset, gas trouble sleeping What may interact with this medicine? antacid cimetidine digoxin ketoconazole phenytoin quinidine ranitidine some antibiotics like ciprofloxacin, norfloxacin, and ofloxacin theophylline thyroid hormones warfarin What if I miss a dose? If you miss a dose, take it as soon as you can. If it is almost time for your next dose, take only that dose. Do not take double or extra doses. Where should I keep my medicine? Keep out of the reach of children. Store at room temperature between 15 and 30 degrees C (59 and 86 degrees F). Keep container tightly closed. Throw away any unused medicine after the expiration date. What should I tell my health care provider before I take this medicine? They need to know if you have any of these conditions: kidney disease an unusual or allergic reaction to sucralfate, other medicines, foods, dyes, or preservatives or trying to get breast-feeding What should I watch for while using this medicine? Visit your doctor or health personal care home administrator for regular check ups. Let your doctor know if your symptoms do not improve or if you feel worse. Antacids should not be taken within one half hour before or after this medicine. Omeprazole Magnesium Gastro-resistant tablet What is this medicine? OMEPRAZOLE (oh ME pray zol) prevents the production of acid in the stomach. It is used to treat the symptoms of heartburn. You can buy this medicine without a prescription. This product is not for long-term use, unless otherwise directed by your doctor or health personal care home administrator. How should I use this medicine? Take this medicine by mouth. Follow the directions on the product label. If you are taking this medicine without a prescription, take one tablet every day. Do not use for longer than 14 days or repeat a course of treatment more often than every 4 months unless directed by a doctor or healthcare professional. Take your dose at regular intervals every 24 hours. Swallow the tablet whole with a drink of water. Do not crush, break or chew. This medicine works best if taken on an empty stomach 30 minutes before breakfast. If you are using this medicine with the prescription of your doctor or healthcare professional, follow the directions you were given. Do not take your medicine more often than directed. Talk to your side guider regarding the use of this medicine in children. Special care may be needed. What side effects may I notice from receiving this medicine? Side effects that you should report to your doctor or health personal care home administrator as soon as possible: allergic reactions like skin rash, itching or hives, swelling of the face, lips, or tongue bone, muscle or joint pain breathing problems chest pain or chest tightness dark yellow or brown urine diarrhea dizziness fast, irregular heartbeat feeling faint or lightheaded fever or sore throat muscle spasm palpitations redness, blistering, peeling or loosening of the skin, including inside the mouth seizures tremors unusual bleeding or bruising unusually weak or tired yellowing of the eyes or skin Side effects that usually do not require medical attention (Report these to your doctor or health personal care home administrator if they continue or are bothersome.): constipation dry mouth headache loose stools nausea What may interact with this medicine? Do not take this medicine with any of the following medications: atazanavir clopidogrel nelfinavir This medicine may also interact with the following medications: ampicillin certain medicines for anxiety or sleep certain medicines that treat or prevent blood clots like warfarin cyclosporine diazepam digoxin disulfiram iron salts phenytoin prescription medicine for fungal or yeast infection like itraconazole, ketoconazole, voriconazole saquinavir tacrolimus What if I miss a dose? If you miss a dose, take it as soon as you can. If it is almost time for your next dose, take only that dose. Do not take double or extra doses. Where should I keep my medicine? Keep out of the reach of children. Store at room temperature between 20 and 25 degrees C (68 and 77 degrees F). Protect from light and moisture. Throw away any unused medicine after the expiration date. What should I tell my health care provider before I take this medicine? They need to know if you have any of these conditions: black or bloody stools chest pain difficulty swallowing have had heartburn for over 3 months have heartburn with dizziness, lightheadedness or sweating liver disease stomach pain unexplained weight loss vomiting with blood wheezing an unusual or allergic reaction to omeprazole, other medicines, foods, dyes, or preservatives or trying to get breast-feeding What should I watch for while using this medicine? It can take several days before your heartburn gets better. Check with your doctor or health personal care home administrator if your condition does not start to get better, or if it gets worse. Do not treat diarrhea with over the counter products. Contact your doctor if you have diarrhea that lasts more than 2 days or if it is severe and watery. Do not treat yourself for heartburn with this medicine for more than 14 days in a row. You should only use this medicine for a 2-week treatment period once every 4 months. If your symptoms return shortly after your therapy is complete, or within the 4 month time frame, call your doctor or health personal care home administrator. You have been given the following additional information: GERD (Adult) Esophageal Spasm Ondansetron Oral disintegrating tablet Sucralfate Oral tablet Omeprazole Magnesium Gastro-resistant tablet (Electronically signed by Saturnino Lambert MD 09/04/2016 2:57)
--- NOTE | 2016-09-04 02:58 | ED MAR SUMMARY ---
..... Medication Administration Record [facility] [address] [address] Patient: ROSEANN GRANT Visit ID: [id number] 75y, F Weight: 76.2 kg Height/Length: 63 in BMI: 29.8 ALLERGIES: Codeine, Shellfish Allergy, Sulfa Drugs Given 21:45 08/23/2016 [place] La R.N. Medication Administered: ZOFRAN [IVP] (ONDANSETRON HCL), Dose: 4 mg IVP over 2 minute(s), Site: #1 left forearm. Medication Ordered: Zofran IV 4 mg (NOW). Start 21:45 08/23/2016 [place] La R.N., Stop 22:27 08/23/2016 [place] La R.N. Medication Administered: IV NS (SALINE), Dose: IV Fluids, Bolus: 500 mL over 30 minute(s), Dispensed: 1000 mL bag, Site: #1 left forearm. Medication Ordered: IV NS : initial bolus 500 mL (1000 mL/hr), then 150 mL/hr for 4h (NOW); Routine. Given 21:46 08/23/2016 [place] La R.N. Medication Administered: GI COCKTAIL WHITE [PO] (SIMETHICONE), Dose: 50 mL Oral Suspension PO. Medication Ordered: GI Cocktail WHITE PO 50 mL (NOW). Given 21:52 08/23/2016 [place] La R.N. Medication Administered: PROTONIX [IVP] (PANTOPRAZOLE SODIUM), Dose: 80 mg IVP over 5 minute(s), Site: #1 left forearm. Medication Ordered: Protonix IVP 80mg 80 mg (Mix in NS 20ml over 4min). Given 21:58 08/23/2016 [place] La R.N. Medication Administered: CARAFATE [PO] (SUCRALFATE), Dose: 2 gm Oral Suspension PO. Medication Ordered: Carafate PO 20 ml (NOW). Start 22:27 08/23/2016 [place] La R.N., Stop 23:49 08/23/2016 Abhinav, Christopher, R.N. Medication Administered: IV NS (SALINE), Dose: IV Fluids over 4 hour(s), Rate: 150 mL/hr, Dispensed: 500 mL bag, Site: #1 left forearm. Medication Ordered: IV NS : initial bolus 500 mL (1000 mL/hr), then 150 mL/hr for 4h (NOW); Routine. Given 23:51 08/23/2016 [place] La, RRodolfoN. Medication Administered: DEMEROL [IVP] (MEPERIDINE HCL), Dose: 6.25 mg IVP over 3 minute(s), Site: #1 left forearm. Medication Ordered: Demerol IV 6.25 mg IV (NOW).
--- NOTE | 2016-09-04 02:58 | ED MED RECONCILIATION SUMMARY ---
Patient: ROSEANN GRANT Medication Reconciliation Report [facility] VisitID: [id number] [place] [address] 75y, F Registration Date/Time: 08/23/2016 Weight: 76.2 kg Height/Length: 63 in. BMI: 29.8 ALLERGIES: Codeine, Shellfish Allergy, Sulfa Drugs The patient's Home Medications are listed below: THE FOLLOWING MEDICATIONS NEED TO BE RECONCILED: ALPRAZolam Oral Ambien Oral ASA Oral 81mg daily Diovan Oral (40 mg) 1/2 tablet, daily Maxalt Oral 5 mg PriLOSEC Oral 20 mg, daily Sertraline HCl Oral, daily The source(s) of the original Home Medication information: patient The following Medications were given to the patient in the Emergency Department: IV NS IV Fluids bolus 500 mL over 30 minute(s), administered: 08/23/2016 9:45:00 PM Zofran [IVP] IVP 4 mg, administered: 08/23/2016 9:45:00 PM GI COCKTAIL WHITE [PO] PO 50 mL, administered: 08/23/2016 9:46:00 PM PROTONIX [IVP] IVP 80 mg, administered: 08/23/2016 9:52:00 PM Carafate [PO] PO 2 gm, administered: 08/23/2016 9:58:00 PM IV NS IV Fluids bolus 0, then 150 mL/hr, administered: 08/23/2016 10:27:00 PM Demerol [IVP] IVP 6.25 mg, administered: 08/23/2016 11:51:00 PM The following Medications were prescribed to the patient: Zofran (orally disintegrating tablets) 4 mg: take 1 orally every 4 hours as needed for nausea. Dispense ten (10). No refill. -- Saturnino Lamebrt MD Carafate 1 gm tablets: take 1 orally four times daily (30 minutes before meals and at bedtime) for 10 days. Dispense forty (40). No refills. -- Saturnino Lambert MD Prilosec 40 mg capsules: take 1 capsule orally every day for 10 days. Dispense ten (10). No refill. -- Saturnino Lambert MD
--- NOTE | 2016-09-04 02:58 | ED DISCHARGE INSTRUCTIONS ---
Patient: ROSEANN GRANT General Instructions [facility]ly [facility] VisitID: [id number] [place] [address] 75y, F Registration Date/Time: 08/23/2016 Gastroesophageal reflux disease with esophagitis. Esophageal spasm. Tension headache. INSTRUCTIONS Warnings: Further evaluation is necessary. SEDATIVE MEDICATION: You were given sedative medication during your visit. Do not drive or operate dangerous machinery. GENERAL WARNINGS: Return or contact your physician immediately if your condition worsens or changes unexpectedly, if not improving as expected, or if other problems arise. Prescription Medications: Zofran (orally disintegrating tablets) 4 mg: take 1 orally every 4 hours as needed for nausea. Dispense ten (10). No refill. Carafate 1 gm tablets: take 1 orally four times daily (30 minutes before meals and at bedtime) for 10 days. Dispense forty (40). No refills. Prilosec 40 mg capsules: take 1 capsule orally every day for 10 days. Dispense ten (10). No refill. Follow-up: Follow up with your doctor in one week. Call for an appointment. Understanding of the discharge instructions verbalized by patient. ADDITIONAL INFORMATION GERD (Adult) The esophagus is a tube that carries food from the mouth to the stomach. A valve at the lower end of the esophagus prevents stomach acid from flowing upward. If this valve does not work properly, acid from the stomach enters the esophagus. If this occurs over and over, the acid will injure the lining of the esophagus. This condition is called GERD (gastroesophageal reflux disease) or acid reflux. When stomach acid flows upward into the esophagus, it causes burning, pressure or sharp pain in the upper abdomen or mid to lower chest. The pain can spread to the neck, back, or shoulder, similar to heart pain (angina). There may be belching, an acid taste in the back of the throat, chronic cough, or sore throat or hoarseness. GERD symptoms often occur during the day after a big meal, but it can also occur at night when lying down. Smoking,as well as drinking alcohol, increases the risk of GERD. GERD is a chronic condition. Once it begins, it is often lifelong. Treatment includes changes in eating habits and the use of acid sinai medications to decrease the amount of acid in the stomach. Symptoms often improve with treatment, but if treatment is stopped, the symptoms usually return after a few months. So most persons with GERD will need to continue treatment. Home Care: Take the prescribed acid sniai medication for the full course of treatment even if you begin to feel better sooner. This medication can take up to several days to fully control your symptoms. If you cant afford the prescribed medication, you can try [id number] acid blockers, such as Pepcid AC, Tagamet, Zantac, or Aciphex. If these do not relieve your symptoms, a stronger acid-sinai can be tried, such as Prilosec OTC. You can use antacids, such as Tums, Rolaids, Mylanta, or Maalox, for pain. This will be useful the first few days after starting acid blockers when the blockers havent started working yet. Follow the directions on the label. Liquid antacids may work better than tablets. Note that antacids can interfere with absorption of certain medications. Specifically, do not take Tagamet (cimetidine), Zantac (ranitidine), or Carafate (sucralfate) within 1 hour of taking an antacid. Talk with your pharmacist if you have any questions. Limit or avoid fatty, fried, and spicy foods, as well as coffee, chocolate, mint, and foods with high acid content such as tomatoes and citrus fruit and juices (orange, grapefruit, lemon). Avoid alcohol and smoking. Dont eat large meals, especially at night. Frequent, smaller meals are best. Do not lie down right after eating. And dont eat anything 3 hours before going to bed. If you are overweight, losing weight will reduce symptoms. Women should not wear corsets or girdles because this increases pressure on the stomach and worsens reflux. If your symptoms occur during sleep, use a foam wedge to elevate your upper body (not just your head.) Or, place 4" blocks under the head of your bed. Follow Up with your doctor or as advised by our staff. Further testing may be needed. If you do not begin to improve over the next 4 days, contact your doctor. If you had an x-ray, CT scan, or ECG (electrocardiogram), it will be reviewed by a specialist. Youll be notified of any new findings that affect your care. Get Prompt Medical Attention if any of the following occur: Stomach pain gets worse or moves to the lower right abdomen (appendix area) Chest pain appears or gets worse, or spreads to the back, neck, shoulder, or arm Frequent vomiting (cant keep down liquids) Blood in the stool or vomit (red or black in color) Feeling weak or dizzy, fainting, or trouble breathing Fever of 100.4F (38C) or higher, or as directed by your healthcare provider Esophageal Spasm The esophagus is a muscular tube that joins your mouth to your stomach. Normal waves of contraction help food move down the esophagus to reach the stomach. Esophageal spasms are abnormal contractions of these muscles. When the muscles are in spasm it may feel like the food is stuck and wont go down. It may cause a feeling of heartburn or a squeezing type of chest pain that can feel just like heart pain (angina). The pain may spread to the neck, arm or back. If you try to swallow more food or liquid during a spasm, it may come back up within seconds. The cause of esophageal spasm is not known but it is more common in people with acid reflux disease (also called "GERD" or "Esophagitis"). Very hot or very cold foods or foods that are not chewed enough before swallowing may trigger an episode. Special tests may be ordered to confirm the diagnosis if there is doubt. Medicine is used to prevent or treat symptoms in most cases. Severe symptoms can be treated with surgery. Home Care: If you are prone to acid reflux and heartburn symptoms, your doctor may prescribe acid-blocking medicine. If not, you can use over the counter medicines as a preventive if you get symptoms often. The following medicines are available without a prescription: Antacids: Neutralize stomach acid. (such as Gaviscon, Mylanta, Tums or Rolaids) Acid-Blockers: Reduce the production of acid in the stomach. (Axid, Pepcid-AC, Tagamet-HB, Zantac, Prilosec-OTC). Learn to recognize if certain foods are causing your spasm and avoid these. Avoid very hot and very cold foods if this is a trigger for you. Eat slowly and chew food well before swallowing. Follow Up with your doctor or as advised by our staff. Get Prompt Medical Attention if any of the following occur: Chest pain or pain in the neck, back, shoulder or arm that does not respond to the treatment recommended Food that feels "stuck" in the esophagus for more than 30 minutes Inability to swallow solid or liquids for more than 30 minutes Symptoms that feel like esophageal spasm but occur with heavy sweating, dizziness, fainting or shortness of breath Change in the usual patterns of your symptoms of esophageal spasm (new pattern of spreading to the neck, back, shoulder or arm; pain that is more severe than usual) Ondansetron Oral disintegrating tablet What is this medicine? ONDANSETRON (on JACEK se anselmo) is used to treat nausea and vomiting caused by chemotherapy. It is also used to prevent or treat nausea and vomiting after surgery. How should I use this medicine? These tablets are made to dissolve in the mouth. Do not try to push the tablet through the foil backing. With dry hands, peel away the foil backing and gently remove the tablet. Place the tablet in the mouth and allow it to dissolve, then swallow. While you may take these tablets with water, it is not necessary to do so. Talk to your firmware test engineer regarding the use of this medicine in children. Special care may be needed. What side effects may I notice from receiving this medicine? Side effects that you should report to your doctor or health healthcare insurance sales agent as soon as possible: allergic reactions like skin rash, itching or hives, swelling of the face, lips, or tongue breathing problems dizziness fast or irregular heartbeat feeling faint or lightheaded, falls fever and chills swelling of the hands and feet tightness in the chest Side effects that usually do not require medical attention (report to your doctor or health healthcare insurance sales agent if they continue or are bothersome): constipation or diarrhea headache What may interact with this medicine? Do not take this medicine with any of the following medications: -apomorphine -cisapride -dofetilide -dronedarone -pimozide -thioridazine -ziprasidone This medicine may also interact with the following medications: -carbamazepine -phenytoin -rifampicin -tramadol -other medicines that prolong the QT interval (cause an abnormal heart rhythm) What if I miss a dose? If you miss a dose, take it as soon as you can. If it is almost time for your next dose, take only that dose. Do not take double or extra doses. Where should I keep my medicine? Keep out of the reach of children. Store between 2 and 30 degrees C (36 and 86 degrees F). Throw away any unused medicine after the expiration date. What should I tell my health care provider before I take this medicine? They need to know if you have any of these conditions: heart disease history of irregular heartbeat liver disease low levels of magnesium or potassium in the blood an unusual or allergic reaction to ondansetron, granisetron, other medicines, foods, dyes, or preservatives or trying to get breast-feeding What should I watch for while using this medicine? Check with your doctor or health healthcare insurance sales agent as soon as you can if you have any sign of an allergic reaction. Sucralfate Oral tablet What is this medicine? SUCRALFATE (EMMA riaz fate) helps to treat ulcers of the intestine. How should I use this medicine? Take this medicine by mouth with a glass of water. Follow the directions on the prescription label. This medicine works best if you take it on an empty stomach, 1 hour before meals. Take your doses at regular intervals. Do not take your medicine more often than directed. Do not stop taking except on your doctor's advice. Talk to your firmware test engineer regarding the use of this medicine in children. Special care may be needed. What side effects may I notice from receiving this medicine? Side effects that you should report to your doctor or health healthcare insurance sales agent as soon as possible: allergic reactions like skin rash, itching or hives, swelling of the face, lips, or tongue difficulty breathing Side effects that usually do not require medical attention (report to your doctor or health healthcare insurance sales agent if they continue or are bothersome): back pain constipation drowsy, dizzy dry mouth headache stomach upset, gas trouble sleeping What may interact with this medicine? antacid cimetidine digoxin ketoconazole phenytoin quinidine ranitidine some antibiotics like ciprofloxacin, norfloxacin, and ofloxacin theophylline thyroid hormones warfarin What if I miss a dose? If you miss a dose, take it as soon as you can. If it is almost time for your next dose, take only that dose. Do not take double or extra doses. Where should I keep my medicine? Keep out of the reach of children. Store at room temperature between 15 and 30 degrees C (59 and 86 degrees F). Keep container tightly closed. Throw away any unused medicine after the expiration date. What should I tell my health care provider before I take this medicine? They need to know if you have any of these conditions: kidney disease an unusual or allergic reaction to sucralfate, other medicines, foods, dyes, or preservatives or trying to get breast-feeding What should I watch for while using this medicine? Visit your doctor or health healthcare insurance sales agent for regular check ups. Let your doctor know if your symptoms do not improve or if you feel worse. Antacids should not be taken within one half hour before or after this medicine. Omeprazole Magnesium Gastro-resistant tablet What is this medicine? OMEPRAZOLE (oh ME pray zol) prevents the production of acid in the stomach. It is used to treat the symptoms of heartburn. You can buy this medicine without a prescription. This product is not for long-term use, unless otherwise directed by your doctor or health healthcare insurance sales agent. How should I use this medicine? Take this medicine by mouth. Follow the directions on the product label. If you are taking this medicine without a prescription, take one tablet every day. Do not use for longer than 14 days or repeat a course of treatment more often than every 4 months unless directed by a doctor or healthcare professional. Take your dose at regular intervals every 24 hours. Swallow the tablet whole with a drink of water. Do not crush, break or chew. This medicine works best if taken on an empty stomach 30 minutes before breakfast. If you are using this medicine with the prescription of your doctor or healthcare professional, follow the directions you were given. Do not take your medicine more often than directed. Talk to your firmware test engineer regarding the use of this medicine in children. Special care may be needed. What side effects may I notice from receiving this medicine? Side effects that you should report to your doctor or health healthcare insurance sales agent as soon as possible: allergic reactions like skin rash, itching or hives, swelling of the face, lips, or tongue bone, muscle or joint pain breathing problems chest pain or chest tightness dark yellow or brown urine diarrhea dizziness fast, irregular heartbeat feeling faint or lightheaded fever or sore throat muscle spasm palpitations redness, blistering, peeling or loosening of the skin, including inside the mouth seizures tremors unusual bleeding or bruising unusually weak or tired yellowing of the eyes or skin Side effects that usually do not require medical attention (Report these to your doctor or health healthcare insurance sales agent if they continue or are bothersome.): constipation dry mouth headache loose stools nausea What may interact with this medicine? Do not take this medicine with any of the following medications: atazanavir clopidogrel nelfinavir This medicine may also interact with the following medications: ampicillin certain medicines for anxiety or sleep certain medicines that treat or prevent blood clots like warfarin cyclosporine diazepam digoxin disulfiram iron salts phenytoin prescription medicine for fungal or yeast infection like itraconazole, ketoconazole, voriconazole saquinavir tacrolimus What if I miss a dose? If you miss a dose, take it as soon as you can. If it is almost time for your next dose, take only that dose. Do not take double or extra doses. Where should I keep my medicine? Keep out of the reach of children. Store at room temperature between 20 and 25 degrees C (68 and 77 degrees F). Protect from light and moisture. Throw away any unused medicine after the expiration date. What should I tell my health care provider before I take this medicine? They need to know if you have any of these conditions: black or bloody stools chest pain difficulty swallowing have had heartburn for over 3 months have heartburn with dizziness, lightheadedness or sweating liver disease stomach pain unexplained weight loss vomiting with blood wheezing an unusual or allergic reaction to omeprazole, other medicines, foods, dyes, or preservatives or trying to get breast-feeding What should I watch for while using this medicine? It can take several days before your heartburn gets better. Check with your doctor or health healthcare insurance sales agent if your condition does not start to get better, or if it gets worse. Do not treat diarrhea with over the counter products. Contact your doctor if you have diarrhea that lasts more than 2 days or if it is severe and watery. Do not treat yourself for heartburn with this medicine for more than 14 days in a row. You should only use this medicine for a 2-week treatment period once every 4 months. If your symptoms return shortly after your therapy is complete, or within the 4 month time frame, call your doctor or health healthcare insurance sales agent. You have been given the following additional information: GERD (Adult) Esophageal Spasm Ondansetron Oral disintegrating tablet Sucralfate Oral tablet Omeprazole Magnesium Gastro-resistant tablet (Electronically signed by Saturnino Lambert MD 09/04/2016 2:57)
--- NOTE | 2016-09-04 02:58 | ED MAR SUMMARY ---
..... Medication Administration Record [facility] [address] [place] [address] Patient: ROSEANN GRANT Visit ID: [id number] 75y, F Weight: 76.2 kg Height/Length: 63 in BMI: 29.8 ALLERGIES: Codeine, Shellfish Allergy, Sulfa Drugs Given 21:45 08/23/2016 Destin La R.N. Medication Administered: ZOFRAN [IVP] (ONDANSETRON HCL), Dose: 4 mg IVP over 2 minute(s), Site: #1 left forearm. Medication Ordered: Zofran IV 4 mg (NOW). Start 21:45 08/23/2016 Destin La R.N., Stop 22:27 08/23/2016 Destin La R.N. Medication Administered: IV NS (SALINE), Dose: IV Fluids, Bolus: 500 mL over 30 minute(s), Dispensed: 1000 mL bag, Site: #1 left forearm. Medication Ordered: IV NS : initial bolus 500 mL (1000 mL/hr), then 150 mL/hr for 4h (NOW); Routine. Given 21:46 08/23/2016 Destin La R.N. Medication Administered: GI COCKTAIL WHITE [PO] (SIMETHICONE), Dose: 50 mL Oral Suspension PO. Medication Ordered: GI Cocktail WHITE PO 50 mL (NOW). Given 21:52 08/23/2016 Destin La R.N. Medication Administered: PROTONIX [IVP] (PANTOPRAZOLE SODIUM), Dose: 80 mg IVP over 5 minute(s), Site: #1 left forearm. Medication Ordered: Protonix IVP 80mg 80 mg (Mix in NS 20ml over 4min). Given 21:58 08/23/2016 Destin La R.N. Medication Administered: CARAFATE [PO] (SUCRALFATE), Dose: 2 gm Oral Suspension PO. Medication Ordered: Carafate PO 20 ml (NOW). Start 22:27 08/23/2016 [place]in La R.N., Stop 23:49 08/23/2016 Abhinav, Christopher, R.N. Medication Administered: IV NS (SALINE), Dose: IV Fluids over 4 hour(s), Rate: 150 mL/hr, Dispensed: 500 mL bag, Site: #1 left forearm. Medication Ordered: IV NS : initial bolus 500 mL (1000 mL/hr), then 150 mL/hr for 4h (NOW); Routine. Given 23:51 08/23/2016 Destin La, RRodolfoN. Medication Administered: DEMEROL [IVP] (MEPERIDINE HCL), Dose: 6.25 mg IVP over 3 minute(s), Site: #1 left forearm. Medication Ordered: Demerol IV 6.25 mg IV (NOW).
--- NOTE | 2016-09-04 02:58 | ED MED RECONCILIATION SUMMARY ---
Patient: ROSEANN GRANT Medication Reconciliation Report [facility] VisitID: [id number] [place] [address] 75y, F Registration Date/Time: 08/23/2016 Weight: 76.2 kg Height/Length: 63 in. BMI: 29.8 ALLERGIES: Codeine, Shellfish Allergy, Sulfa Drugs The patient's Home Medications are listed below: THE FOLLOWING MEDICATIONS NEED TO BE RECONCILED: ALPRAZolam Oral Ambien Oral ASA Oral 81mg daily Diovan Oral (40 mg) 1/2 tablet, daily Maxalt Oral 5 mg PriLOSEC Oral 20 mg, daily Sertraline HCl Oral, daily The source(s) of the original Home Medication information: patient The following Medications were given to the patient in the Emergency Department: IV NS IV Fluids bolus 500 mL over 30 minute(s), administered: 08/23/2016 9:45:00 PM Zofran [IVP] IVP 4 mg, administered: 08/23/2016 9:45:00 PM GI COCKTAIL WHITE [PO] PO 50 mL, administered: 08/23/2016 9:46:00 PM PROTONIX [IVP] IVP 80 mg, administered: 08/23/2016 9:52:00 PM Carafate [PO] PO 2 gm, administered: 08/23/2016 9:58:00 PM IV NS IV Fluids bolus 0, then 150 mL/hr, administered: 08/23/2016 10:27:00 PM Demerol [IVP] IVP 6.25 mg, administered: 08/23/2016 11:51:00 PM The following Medications were prescribed to the patient: Zofran (orally disintegrating tablets) 4 mg: take 1 orally every 4 hours as needed for nausea. Dispense ten (10). No refill. -- Saturnino Lambert MD Carafate 1 gm tablets: take 1 orally four times daily (30 minutes before meals and at bedtime) for 10 days. Dispense forty (40). No refills. -- Saturnino Lambert MD Prilosec 40 mg capsules: take 1 capsule orally every day for 10 days. Dispense ten (10). No refill. -- Saturnino Lambert MD
== END 2016-08-24 00:02 | disposition home or self-care (01) ==
LOC: ED SRH 20:41
DX: K21.0 Gastro-esophageal reflux disease with esophagitis (principal); K22.4 Dyskinesia of esophagus; G44.209 Tension-type headache, unspecified, not intractable; Z79.899 Other long term (current) drug therapy; Z88.2 Allergy status to sulfonamides; Z88.5 Allergy status to narcotic agent; Z91.013 Allergy to seafood
CPT/HCPCS: 90100; 90616; 91320; 91556; 92235; 92530; 92610; 92720; 95059